=== PATIENT | female | born 1990 ===

== ENCOUNTER 2020-07-08 17:17 | Outpatient (CLI) | payer MEDICAID, BC, SELFPAY ==
[2020-07-08 17:55] VITALS: BP 124/60; PULSE 82
[2020-07-08 18:09] VITALS: BP 123/62; PULSE 83
[2020-07-08 18:13] VITALS: BMI 33.7
[2020-07-08 18:24] VITALS: BP 120/60; PULSE 85
[2020-07-08 18:40] VITALS: RESP 18; TEMP 36.6
[2020-07-08 18:52] LABS: Nitrazine Paper, PH Negative
== END 2020-07-08 18:32 | disposition home or self-care (01) ==
LOC: OPOB 17:34 → OBGYN 17:51
PROVIDERS: Visit Provider Family Medicine
DX: O26.899 Other specified pregnancy related conditions, unspecified trimester (principal); Z3A.00 Weeks of gestation of pregnancy not specified; N89.8 Other specified noninflammatory disorders of vagina
CPT/HCPCS: 83986; 99211

== ENCOUNTER 2020-07-19 00:34 | Outpatient (CLI) | payer MEDICAID, SELFPAY ==
[2020-07-19 00:47] VITALS: BP 131/59; PULSE 76
[2020-07-19 00:54] VITALS: TEMP 36.2
[2020-07-19 02:30] VITALS: BP 155/82; PULSE 86; RESP 16
--- NOTE | 2020-07-19 02:41 | P.PCN_ITS ---
Procedure/Consent Procedure Narrative: [place]STRESS TEST: [place] [facility] [place] Ind[place]: 29 yr G [id number], abdominal pain and leaking of fluid Date and time of test:07/19/2020---1:45 AM Baseline: 130 Variability: moderate variability Accelerations: Present Decelerations: None Tocometry: Contractions every 5 to 8 minutes-patient does not feel them INTERPRETATION: NST reactive, continue kick counts
--- NOTE | 2020-07-19 02:41 | PM.ACPR ---
Procedure/Consent Procedure Narrative: NONSTRESS TEST: Place of test: [facility] [place]- L&D Indication: 29 yr G [id number], abdominal pain and leaking of fluid Date and time of test:07/19/2020---1:45 AM Baseline: 130 Variability: moderate variability Accelerations: Present Decelerations: None Tocometry: Contractions every 5 to 8 minutes-patient does not feel them INTERPRETATION: NST reactive, continue kick counts
== END 2020-07-19 02:40 | disposition home or self-care (01) ==
LOC: OPOB 00:36 → OBGYN 00:36
PROVIDERS: Visit Provider Obstetrics & Gynecology
DX: O26.899 Other specified pregnancy related conditions, unspecified trimester (principal); Z3A.00 Weeks of gestation of pregnancy not specified; R10.9 Unspecified abdominal pain; N89.8 Other specified noninflammatory disorders of vagina
CPT/HCPCS: 59025; 83986; 99211

== ENCOUNTER 2020-07-26 12:25 | Inpatient (IN) | payer MEDICAID, SELFPAY ==
[2020-07-26] VITALS (15 sets, daily range): BP systolic 116–141; BP diastolic 69–86; PULSE 66–91; RESP 18; TEMP 36.5–36.8; BMI 33.1
[2020-07-26 15:06] LABS: Amphetamines Screen Urine Negative (Negative); Barbiturates Screen Urine Negative (Negative); Benzodiazepines Screen Urine Negative (Negative); Cocaine Screen Urine Negative (Negative); Opiate Screen Urine Negative (Negative); PCP Screen Urine Negative (Negative); THC Screen Urine Negative (Negative)
--- NOTE | 2020-07-26 16:03 | PC.NURSE ---
ATTEMPTED TWICE TO DRAW PATIENTS LAB WITHOUT SUCCESS CALLED LAB AND ASKED IF THEY WOULD COME DRAW AND THEY SAID THAT THEY WOULD.
[2020-07-26 16:26] LABS: Basophils # 0.1 10^3/uL (0.0-0.1); Basophils % 0.6 %; Eosinophils # 0.1 10^3/uL (0.0-0.8); Eosinophils % 0.7 %; Hematocrit 39.1 % (37.0-47.0); Hemoglobin 12.7 g/dL (11.5-15.3); Lymphocytes # 1.6 10^3/uL (0.8-4.8); Lymphocytes % 18.5 %; Mean Corpuscular HGB Conc 32.5 g/dL (30.0-36.0); Mean Corpuscular Hemoglobin 29.1 pg (28.0-34.0); Mean Corpuscular Volume 89.7 fL (81-99); Mean Platelet Volume 10.6 fL (7.4-10.4); Monocytes # 0.6 10^3/uL (0.2-0.9); Monocytes % 7.3 %; Neutrophils # 6.19 10^3/uL (1.8-7.7); Neutrophils % 71.7 %; Nucleated Red Blood Cells % 0 %; Platelet Count 247 10^3/cmm (130-400); Red Blood Count 4.36 10^6/uL (4.1-5.3); Red Cell Distribution Width 13.2 % (12.1-15.1); White Blood Count 8.6 10^3/uL (4.0-10.0)
--- NOTE | 2020-07-26 17:00 | P.HP_ITS ---
Providers/Chief Complaint Admitting Physician: Artemio Herbert MD Chief Complaint: Induction History of Present Illness Katie White is a 29 year old female who is a to, para 1 female with an EDC of 07/21/2020. She was seen by her care provider, Dr. Dana Cano earlier today with periodic contractions. Nonstress testing at that time was equivocal by Dr. Cano's report. She noted the patient to be approximately 4 segmenters dilated and asked her to come up to the OB department. Upon arrival to [facility] OB department she was found to be approximately 1 to 2 cm dilated and is still pretty thick and high. A quick scan demonstrated her to be vertex with the head towards the right hip. She has been on the monitor off and on throughout the afternoon with a very reactive strip. However, she is not terribly uncomfortable at this time. Review of Systems 2 Const: Denies: fever(s), chills, change in appetite or change in weight Eyes: Denies: change in vision or blurry vision ENMT: Denies: throat pain or odynophagia Card: Denies: chest pain, palpitations, irregular heart rhythm, edema or swelling of feet/ankles Resp: Denies: dyspnea, productive cough or non-productive cough GI: Denies: abdominal pain, nausea, vomiting, diarrhea or constipation : Reports: amenorrhea (She is 40 weeks and 5 days .); Denies: flank pain or difficulty voiding Musc: Denies: neck pain, back pain, joint pain, joint swelling or joint redness Skin/Breast: Denies: rash Neuro: Denies: headache(s), weakness in extremities or sensory changes Psych: Denies: anxiety, depression or mood swings Endo: Denies: polyuria or polydipsia Manan/Lymph: Denies: easy bruising All/Imm: Denies: seasonal rhinorrhea PFSH Acute Female Reproductive History: control method: none : 2 Other female reproductive history: Patient relates that she pushed for approximately 5 hours with her last baby which was a female weighing 7 pounds 7 ounces. Vitals/I&O/Wt Last Vital Signs Temp 98.1 F 07/26/20 12:57 Pulse 82 07/26/20 16:25 BP 136/86 07/26/20 16:25 Weight last 48 hrs Weight 87.543 kg Physical Exam Const: COMMON NORMALS: no acute distress and healthy appearing HENMT: COMMON NORMALS: moist oral mucous membranes Resp: COMMON NORMALS: normal respiratory effort, No retractions, No use of accessory muscles and clear to auscultation bilaterally Cardio: COMMON NORMALS: regular rate, regular rhythm and No murmurs present (Cardio) GI: COMMON NORMALS: Soft to palpation; negative for no masses (She has a gravid uterus.) : COMMON NORMALS: Yes no CVA tenderness Extremity: COMMON NORMALS: normal to inspection, full ROM, no calf tenderness and no pedal edema Neuro: COMMON NORMALS: patient oriented x3, CN's II-XII intact bilaterally, moves all extremities, no focal motor deficits and no sensory deficits noted Psych: COMMON NORMALS: mental status grossly normal, Normal thought process present, cooperative and normal affect Skin: COMMON NORMALS: no rashes or lesions noted Data : 07/26/20 16:14 A&P Assessment and plan (1) Post-dates : By dates which are solid according to Dr. Cano the patient is 40 weeks and 5 days gestation. She is janie intermittently but is not at this time in active labor. However, I feel at this time it is time to attempt an induction for delivery of an at term. I have discussed benefits and risks with the patient and significant other and she agrees to proceed with misoprostol cervical ripening for induction purposes. She relates that she believes that that is with the use last time she had a baby. Permit form was signed. I will allow the patient to eat a very light meal prior to beginning induction process. Status: Acute Attestations Medical Necessity Statement*: This patient has a postdates and would benefit from admission to the hospital for cervical ripening for delivery of an at this time. Time Spent in Patient Care: 16 - 35 minutes Coding Level of Care Code Acute Client Service Supervisor for [facility] Fwd Exam Comprehensive Diagnoses Post-dates O48.0
[2020-07-26] MEDS: miSOPROStol 100 mcg tablet 25 MCG VAGINAL (17:35)
[2020-07-26] MEDS: lactated ringers 1,000 ML 999 ML IV (23:51)
[2020-07-27] VITALS (75 sets, daily range): BP systolic 115–153; BP diastolic 65–96; PULSE 62–104; TEMP 36.2–37.3; O2SAT 97–100
[2020-07-27] MEDS: lactated ringers 1,000 ML 999 ML IV (01:11)
--- NOTE | 2020-07-27 01:32 | ANES.PREANE2 ---
Pre-Anesthetic Assessment Pre-Anesthetic Assessment: Height/Weight: Height 1.63 m Weight 87.543 kg Temp Pulse Resp BP 97.9 F 71 18 139/82 07/27/20 01:10 07/27/20 01:07 07/26/20 20:46 07/27/20 01:07 Preop Diagnosis: labor Proposed Procedure: epi Was Beta Rajiv taken within 24 hours: N/A Was Clonidine taken within 24 hours: N/A Last Intake: 18:00 Social: Social History: No alcohol and No tobacco Exam: Pre-Anes Outpt Exam: alert, oriented x 3, clear to auscultation bilaterally and regular rate & rhythm Airway: Submandibular: WNL Cervical ROM: WNL MP: 2 Dentition: Full Pulmonary: Pulmonary: None reported CV/HEM: CV/HEM: None reported : : None reported Hepatic: Hepatic: None reported GI: GI: GERD () Metabolic: Metabolic: None reported Musc/skel: Musc/skel: Weakness (ENTOS. pain numbness weakness on right side) Neuropsych: Neuropsych: Anxiety and Depression Anesthetic Plan: ASA status: 2 Anesthesia: Regional (specify below) (epidural) Risk of > 500 ml blood loss (7ml/kg in children): No PFSH Anesthesia Female Reproductive History: control method: none : 2 Data Anesthesia CBC & Chem 7: 07/26/20 16:14 Other Labs: Laboratory Results - last 48 hr 07/26/20 07/26/20 14:20 16:14 WBC 8.6 RBC 4.36 Hgb 12.7 Hct 39.1 MCV 89.7 MCH 29.1 MCHC 32.5 RDW 13.2 Plt Count 247 MPV 10.6 H Neut % (Auto) 71.7 Lymph % (Auto) 18.5 Schleicher % (Auto) 7.3 Eos % (Auto) 0.7 Baso % (Auto) 0.6 Neut # (Auto) 6.19 Lymph # (Auto) 1.6 Schleicher # (Auto) 0.6 Eos # (Auto) 0.1 Baso # (Auto) 0.1 Nucleated RBC % (auto) 0 Nucleated RBCs # 0.0 Urine Opiates Screen Negative Ur Barbiturates Screen Negative Ur Phencyclidine Scrn Negative Ur Amphetamines Screen Negative U Benzodiazepines Scrn Negative Urine Cocaine Screen Negative U Marijuana (THC) Screen Negative Cardiac Studies: No Data to Display
[2020-07-27] MEDS: dextrose 5%-lactated ringers 1,000 ML 125 ML IV ×2 (02:08→15:51)
--- NOTE | 2020-07-27 02:15 | ANES.PROC ---
Anesthesia Procedures Procedure/Date: 07/27/20 Epidural: Time Out Performed: Yes Consents Signed: Procedure Consent Consent: requested by attending/covering physician, from patient, risks and benefits reviewed and patient agrees to proceed Lumbar Level: L3-L4 Epidural position: sitting Epidural procedure: sterile prep of area (betadine), 1% lidocaine to numb the area, 18 g needle, neg for paresthesia, test dose given, 1.5% xylocaine 1:200k epi (5ml), 0.2% Ropivacaine bolus ml (5ml), placed PCEA, no systemic response, sterile dressing applied, L.U.D. no apparent complications and 0.2% Ropiavacaine @ mls/hr (10ml/hr)
[2020-07-27] MEDS: oxytocin 30 UNIT/500 ML BAG IV (06:30)
--- NOTE | 2020-07-27 12:25 | PC.NURSE ---
[address] Lloyd to report that pt is uncomfortable with her epidural. She has pushed her bolus button and has tried multiple position changes. Her epidural pump is set on 10mL/hr. Dr. Lloyd said he would be up soon.
--- NOTE | 2020-07-27 12:48 | PC.NURSE ---
Dr. Lloyd at bedside, gave pt 100 mcg of fentanyl and 2% lidocaine.
--- NOTE | 2020-07-27 13:48 | PM.MISC ---
Miscellaneous Note Purpose of Documentation: Break through pain, bolused 100mcg fent and 5mls of 2% lido.
[2020-07-27] MEDS: methylergonovine 0.2 mg/mL INJ 1 mL IM (16:40)
--- NOTE | 2020-07-27 17:02 | P.PCNOB_ITS ---
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 At that time she was postdates and janie with some cervical dilatation. She was sent to [facility] OB department under my care to assume care of the patient through labor and delivery process. As she was janie irregularly and her cervix was still pretty thick a discussion was made between this physician and the elijah kat discussing benefits and risks of misoprostol cervical ripening. She was given misoprostol 25 mcg x 1 dose and began janie more regularly throughout the night. She began making cervical change and dilated to around 7 cm dilated late yesterday evening. By sink cutter she needed epidural anesthesia and that was placed without problems. Her dilatation slowed and the stayed pretty high. When the contractions spaced out Pitocin augmentation was added and she slowly dilated to complete cervical dilatation early in the afternoon of the day of delivery. This physician was called and performed artificial rupture membranes with a small amount of clear fluid obtained. The patient was then allowed to start pushing and after a little less than an hour pushing delivered by spontaneous vaginal livery healthy, viable female at 1625. Upon delivery the head, the mouth and nose were suctioned at the perineum. The shoulders then rotated counterclockwise with the right shoulder being anterior and delivered without problems followed by the posterior shoulder. There was no nuchal cord and the cord had 3 blood vessels. After more suctioning, the was then placed on mother's abdomen and dried vigorously. At approximately 1 minute, the umbilical cord was clamped and then cut. Infant continued to do well and had Apgars of 9 and 9 at 1 and 5 minutes respectively. The infant weighed 8 pounds 7 ounces. Upon delivery, the IV site infiltrated and therefore Pitocin was not given for uterine atony. An IV was attempted in the left arm and was unsuccessful. She was given Methergine IM in the left thigh. This began to tighten the uterus up. However, there was a moderate amount of clots in the vaginal vault after slowing a second-degree perineal laceration. The second-degree perineal laceration went in the midline along the previous episiotomy scar. There is a moderate amount of clots delivered as stated above but the uterus tightened up nicely and was well below the umbilicus. Bleeding had slowed to just a trickle. Estimated blood loss approximate 387 mL. Pre-Delivery Course: This patient was followed by Dr. Dana Cano throughout most of her . There were no major concerns or problems throughout her . Maternal blood type was B+ with antibody screen negative. Hepatitis B, hepatitis C, RPR and HIV were negative. Rubella was immune and group B strep was negative. This physician received a call from Dr. Cano when the patient had decided to proceed to the OB department and I agreed to accept the patient in transfer from Dr. Cano. Delivery: Spontaneous vaginal delivery Post-Delivery Status: , The patient is doing well and will be followed for routine postdelivery care. We will watch closely for further signs of uterine atony and bleeding. A&P Assessment and plan (1) Post-dates : Patient did well with labor and delivery process as well as episiotomy repair with epidural anesthesia. There were no complications except for mild uterine atony secondary to lack of Pitocin bolus after delivery. She did receive Methergine IM and presently is doing well. She will be followed closely for routine care with observation for possible bleeding. Status: Acute Coding Level of Care Code Acute Horticultural Nursery Assistant for Ch[facility] Fwd Diagnoses Post-dates O48.0
[2020-07-27] MEDS: HYDROcodone-acetaminophen 5-325 mg Tablet PO (17:24)
[2020-07-27] MEDS: docusate sodium 100 mg Capsule PO (17:26)
--- NOTE | 2020-07-27 17:51 | PC.NURSE ---
pitocin was bolused at 1631 after delivery of placenta per verbal order from Keon Curtis. Pt had heavier bleeding after placenta delivered. 1635 Pt stated pain at IV site when pitocin was started. Pt IV site was infiltrated and IV was stopped. This video game script writer looked for another IV site and tried a 20 gauge in pt left AC space, a small flash of blood was noted, but pt reported pain with flush and above IV site started to swell. 1640 Received verbal order from Dr. Herbert to give 0.2mg Methergine IM, and reported as long as pt bleeding slowed down she would not have to have another IV.
[2020-07-27] MEDS: ibuprofen 800 mg tablet PO (21:34)
[2020-07-28] VITALS (8 sets, daily range): BP systolic 108–149; BP diastolic 67–92; PULSE 69–101; RESP 16; TEMP 36.5–37.1; O2SAT 97–98
[2020-07-28] MEDS: HYDROcodone-acetaminophen 5-325 mg Tablet PO ×3 (00:38→17:33)
[2020-07-28 06:42] LABS: Hematocrit 35.8 % (37.0-47.0); Hemoglobin 11.3 g/dL (11.5-15.3); Mean Corpuscular HGB Conc 31.6 g/dL (30.0-36.0); Mean Platelet Volume 10.4 fL (7.4-10.4); Platelet Count 243 10^3/cmm (130-400); Red Blood Count 3.89 10^6/uL (4.1-5.3); Red Cell Distribution Width 13.4 % (12.1-15.1); White Blood Count 13.3 10^3/uL (4.0-10.0)
--- NOTE | 2020-07-28 08:37 | PM.OBGYDC ---
Discharge Providers CURTAIN ROLLER ASSEMBLER Date of Admission: 07/26/20 12:25 Date of Discharge: 07/28/20 Attending Provider at Admission: Artemio Herbert MD Attending Provider at Discharge: Artemio Herbert MD Diagnoses at Discharge Discharge Diagnosis (1) Post-dates : Status: Acute Reason for Visit Reason for Visit: Induction Hospital Course Hospital Course Patient delivered by spontaneous vaginal delivery yesterday evening after a fairly long labor process. She has had mild lochia but is cramping some and has required some hydrocodone. She is working with breast-feeding the infant who is having some difficulties. Overall, she is doing well and tolerating a regular diet and ambulating well. It is felt that she will be able to be discharged this evening after 's metabolic screen. We will make follow-up appointment with her high school hvac r instructor in [place]. Mom will continue to work with senior accounts payable specialist throughout the day today prior to discharge. Information Peripartum Data: Delivery Method: Vaginal Physical Exam Const: COMMON NORMALS: no acute distress, healthy appearing and well nourished GENERAL APPEARANCE: cooperative and comfortable HENMT: COMMON NORMALS: moist oral mucous membranes Resp: COMMON NORMALS: normal respiratory effort, No retractions, No use of accessory muscles and clear to auscultation bilaterally AUSCULTATION: clear to auscultation bilaterally Cardio: COMMON NORMALS: regular rate, regular rhythm and No murmurs present (Cardio) RATE: regular rate RHYTHM: regular rhythm GI: COMMON NORMALS: Normal to inspection, nondistended, normoactive bowel sounds present, Soft to palpation (Fundus is firm.) and non-tender PALPATION: Yes Soft to palpation (Fundus is firm.) Extremity: COMMON NORMALS: normal to inspection, full ROM and no pedal edema Neuro: COMMON NORMALS: CN's II-XII intact bilaterally, moves all extremities, no focal motor deficits and no sensory deficits noted Psych: COMMON NORMALS: mental status grossly normal Skin: COMMON NORMALS: no rashes or lesions noted GENERAL SKIN EXAM: no rashes or lesions noted Urinary Catheter Management^: Grover: Cath Placed During This Visit: yes, but has since been removed by the nurse Reason for Continuing Indwelling Catheter: Decision to DC Catheter Urinary Catheter Date of Insertion: 07/27/20 Urinary Catheter Time of Insertion: 02:42 Date Urinary Catheter Removed: 07/27/20 Time Urinary Catheter Discontinued: 15:30 Discharge Data Data Completed and Pending: Labs from last 24 hours 07/28/20 06:33 WBC 13.3 H RBC 3.89 L Hgb 11.3 L Hct 35.8 L MCV 92.0 MCH 29.0 MCHC 31.6 RDW 13.4 Plt Count 243 MPV 10.4 Vitals: Last Vital Signs Temp 97.9 F 07/28/20 06:06 Pulse 91 07/28/20 06:06 Resp 18 07/26/20 20:46 BP 133/90 07/28/20 06:06 Pulse Ox 99 07/27/20 02:41 Discharge Plan Discharge Patient Disposition: Home Condition: Stable Prescriptions: New ibuprofen 800 mg Tablet 800 mg PO TID Qty: 90 RF: 1 docusate sodium [DOK] 100 mg Capsule 100 mg PO BID Qty: 60 RF: 1 Continued Tylenol 325 mg Capsule 1,000 mg PO PRN PRN (Reason: pain) RF: 0 Vitamin Plus Low Iron 27 mg iron- 1 mg tablet RF: 0 Discharge Orders: Discharge Order (Routine); Ordered 07/28/20 Ordered By: Artemio Herbert Referrals: Dana Cano DO [Staff Physician] - 6 Weeks Discharge Diet: Usual diet Discharge Activity: Resume usual activity Patient Instructions: Vaginal Delivery (DC), Pre-eclampsia and Eclampsia (DC), Bleeding (DC), OB Discharge Report, OB Food/Drug Interaction Guide, Opioid Safety, OB Home Care, OB Proud Parent Packet Discharge Attestations CURTAIN ROLLER ASSEMBLER Time Spent in Discharge Care*: less than 30 min Specific Discharge Activities: Specific discharge activities: educating patient, documenting/other paperwork and evaluating patient/reviewing data Coding Level of Care Code Acute Cuff Matcher for Chg Fwd Diagnoses Post-dates O48.0
[2020-07-28] MEDS: prenatal vitamin Capsule 1 CAP PO (10:15)
[2020-07-28] MEDS: ibuprofen 800 mg tablet PO ×2 (10:15→17:34)
[2020-07-28] MEDS: docusate sodium 100 mg Capsule PO (10:15)
== END 2020-07-28 18:30 | disposition home or self-care (01) | DRG 807 ==
PROVIDERS: Admitting Provider Family Medicine; Visit Provider Family Medicine
DX: O48.0 Post-term pregnancy (principal); Z37.0 Single live birth; Z3A.40 40 weeks gestation of pregnancy; O70.1 Second degree perineal laceration during delivery; O62.2 Other uterine inertia
CPT/HCPCS: 36415; 51702; 59025; 59409; 80306; 85025; 85027; 96372; 98960; 99211; J2210; J2795; J3010

== ENCOUNTER 2021-09-12 06:00 | Outpatient (RCR) | payer MEDICAID, SELFPAY | END 2021-10-05 23:59 | disposition home or self-care (01) | LOC: MPT 06:00 | PROVIDERS: Referring Provider Physician Assistant; Visit Provider Physician Assistant | DX: G54.0 Brachial plexus disorders (principal) | CPT/HCPCS: 97110; 97161; G0283 ==

== ENCOUNTER 2021-10-06 06:00 | Outpatient (RCR) | payer MEDICAID, SELFPAY | END 2021-11-05 23:59 | disposition home or self-care (01) | LOC: MPT 06:00 | PROVIDERS: Referring Provider Physician Assistant; Visit Provider Physician Assistant | DX: G54.0 Brachial plexus disorders (principal) | CPT/HCPCS: 97110; 97112; 97140; G0283 ==